=== PATIENT | male | born 1995 ===

== ENCOUNTER 2025-02-21 19:59 | Emergency (ER) | payer OTHER ==
[~2025-02-21] VITALS: Ht 172.7 cm; Wt 89.4 kg
== END 2025-02-21 23:53 | disposition home or self-care (01) ==
LOC: ER 19:59
DX: S51.812A Laceration without foreign body of left forearm, initial encounter (principal); W26.0XXA Contact with knife, initial encounter
CPT/HCPCS: 12001; 99282-25